=== PATIENT | male | born 1955 ===

== ENCOUNTER 2019-11-26 20:47 | Inpatient (IN) | payer OTHER, MEDICARE, SELFPAY ==
[2019-11-26] VITALS (46 sets, daily range): BP systolic 74–129; BP diastolic 43–102; PULSE 81–159; RESP 9–30; TEMP 36.5–36.7; O2SAT 86–100
[2019-11-26] MEDS: Normal Saline 1,000 ML 1000 ML IV (20:45)
[2019-11-26] MEDS: Lactated Ringers 1,000 ML 1000 ML IV (20:45)
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
--- NOTE | 2019-11-26 21:00 | RT.EKG_ITS ---
APPROVED REPORT Exam: Resting ECG Patient Location: E HR:96 bpm ECG Measurements Heart Rate 96 AXIS MS 152 P 53 QRSd 91 QRS 66 QT 396 T 28 QTc 501 Conclusion Sinus rhythm...normal P axis, V-rate 60- 99 Low voltage, extremity leads...all extremity leads <0.5mV Prolonged QT interval...QTc >500mS I have reviewed and interpreted ECG and agree with software generated interpretation.
[2019-11-26 21:01] LABS: Abs Immature Grans 0.12 10^3/uL (0.0-0.06); Absolute Basophil Count 0.06 10^3/uL (0.0-0.2); Absolute Eosinophil Count 0.09 10^3/uL (0.0-0.7); Absolute Lymphocyte Count 3.12 10^3/uL (1.2-3.4); Absolute Monocyte Count 0.77 10^3/uL (0.1-0.8); Basophils % 0.7; HCT 46.1 % (40.0-50.0); HGB 14.7 g/dL (13.5-17.5); Immature Grans % 1.4; Lymphocytes % 35.6; MCH 33.2 pg (27.0-33.0); MCHC 31.9 % (32.0-36.0); MCV 104.1 fL (80-95); MPV 9.4 fL (8.0-11.0); Monocytes % 8.8; Neutrophils % 52.5; Nucleated RBC 0 %; Platelet Count 281 10^3/uL (130-400); RBC 4.43 10^6/uL (4.36-5.78); RDW 12.8 % (11.8-14.1); RDW-SD 49.6 fL; WBC 8.76 10^3/uL (4.4-10.8)
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
[2019-11-26 21:13] LABS: ALT 181 U/L (16-63); AST 255 U/L (15-37); Alkaline Phosphatase 64 U/L (46-116); Amylase 28 U/L (25-115); Anion Gap 17.4 mmol/L (3-11); BUN 21 mg/dL (7-18); Bilirubin, Total 0.4 mg/dL (0.2-1.0); CO2 18.6 mmol/L (21.0-32.0); CREATININE 2.14 mg/dL (0.70-1.30); Calcium 8.7 mg/dL (8.5-10.1); Chloride 102 mmol/L (98-107); Creatine Kinase 183 U/L (39-308); Estimated GFR 31.07 (mL/min/1.73m2); Glucose 100 mg/dL (74-106); Potassium 4.2 mmol/L (3.5-5.1); Sodium 138 mmol/L (136-145)
[2019-11-26 21:15] LABS: INR 0.9 (0.9-1.1); PTT Activated 20.7 sec (21.0-31.4); Prothrombin Time 9.5 sec (9.3-11.0)
[2019-11-26] MEDS: Lactated Ringers 1,000 ML 2000 ML IV ×2 (21:30→21:48)
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
[2019-11-26] MEDS: Normal Saline Flush 10 ML SYR IVP (21:39)
[2019-11-26] MEDS: Normal Saline - Diluent 50 ML VIAL IV (21:39)
[2019-11-26] MEDS: Omnipaque 350 MG/ML 100 ML BTL IJ (21:40)
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
[2019-11-26 22:00] LABS: BE (Venous) -15 mmol/L (-2-3); HCO3 (Venous) 11 mmol/L (23-28); O2 Sat (Venous) 99 %; TCO2 (Venous) 10 mmol/L (24-29); pCO2 (Venous) 22 mmHg (41-51); pH (Venous) 7.32 (7.31-7.41); pO2 (Venous) 139 mmHg
[2019-11-26 22:01] LABS: HCT 36.1 % (40.0-50.0); HGB 11.4 g/dL (13.5-17.5); MCH 33.3 pg (27.0-33.0); MCHC 31.6 % (32.0-36.0); MCV 105.6 fL (80-95); MPV 9.2 fL (8.0-11.0); Nucleated RBC 0 %; Platelet Count 221 10^3/uL (130-400); RBC 3.42 10^6/uL (4.36-5.78); RDW 12.8 % (11.8-14.1); RDW-SD 49.6 fL; WBC 16.36 10^3/uL (4.4-10.8)
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
[2019-11-26 22:11] LABS: Bilirubin Negative (Negative); Blood Negative (Negative); Clarity Clear (Clear); Glucose Negative (Negative); Ketones Negative (Negative); Leukocyte Esterase Negative (Negative); Nitrite Negative (Negative); Urobilinogen 0.2 EU/dL (Up TO 0.2); pH 5.5 (5-8)
[2019-11-26 22:18] LABS: ALT 122 U/L (16-63); AST 184 U/L (15-37); Albumin 2.5 g/dL (3.4-5.0); Alkaline Phosphatase 44 U/L (46-116); Anion Gap 17.9 mmol/L (3-11); BUN 19 mg/dL (7-18); Bilirubin, Total 0.3 mg/dL (0.2-1.0); CO2 13.1 mmol/L (21.0-32.0); CREATININE 1.55 mg/dL (0.70-1.30); Calcium 6.9 mg/dL (8.5-10.1); Chloride 109 mmol/L (98-107); Estimated GFR 45.08 (mL/min/1.73m2); Glucose 82 mg/dL (74-106); Lipase 95 U/L (73-393); Magnesium 1.2 mg/dL (1.8-2.4); Potassium 3.8 mmol/L (3.5-5.1); Sodium 140 mmol/L (136-145); Total Protein 5.2 g/dL (6.4-8.2)
[2019-11-26 22:24] LABS: ETHANOL BLOOD 299.2 mg/dL (<3); Troponin I < 0.05 ng/mL (<0.06)
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
[2019-11-26 22:26] LABS: Absolute Monocyte Count 0.82 10^3/uL (0.1-0.8); Absolute Neutrophil Count 13.74 10^3/uL (1.2-6.7); Bands % 3; Diff Comment Manual Differential
[2019-11-26 22:27] LABS: Macrocytosis 1+
[2019-11-26 22:33] LABS: *AMPHETAMINES SCREEN URINE Negative (Negative); *BARBITURATES SCREEN URINE Negative (Negative); *BENZODIAZEPINES SCREEN URINE Negative (Negative); Cannabinoids THC Negative (Negative); Cocaine Screen,Urine Negative (Negative); METHADONE URINE SCREEN Negative (Negative); OPIATES URINE SCREEN Negative (Negative)
[2019-11-26 22:35] LABS: Tricyclic Antidepressants Negative (Negative)
--- NOTE | 2019-11-26 23:02 | NUR.NOTE ---
Nursing Note: Request from patient to reach out to son Cale Jainon, voicemail left for cale to call back main number of hospital for update.
[2019-11-26 23:06] LABS: GGT 187 U/L (15-85)
[2019-11-26] MEDS: MAGNESIUM SULFATE 2 GM/50 ML BAG IVPB (23:08)
[2019-11-26] MEDS: FAMOTIDINE 20 MG/50 ML BAG 200 MG IVPB (23:09)
[2019-11-26] MEDS: MAGNESIUM SULFATE 8.12 MEQ, MULTIVITAMIN 10 ML, THIAMINE 100 MG, FOLIC ACID 1 MG in Nor... 168.867 MG IV (23:45)
[2019-11-27] VITALS (55 sets, daily range): BP systolic 86–128; BP diastolic 45–78; PULSE 88–110; RESP 12–35; TEMP 36.6–37.4; O2SAT 89–96
[2019-11-27] MEDS: ACETAMINOPHEN 1,000 MG/100 ML BTL 400 MG IVPB ×3 (00:33→15:43)
[2019-11-27 01:38] LABS: Anion Gap 17.4 mmol/L (3-11); BUN 17 mg/dL (7-18); CO2 13.6 mmol/L (21.0-32.0); CREATININE 1.46 mg/dL (0.70-1.30); Calcium 7.2 mg/dL (8.5-10.1); Chloride 108 mmol/L (98-107); Estimated GFR 48.31 (mL/min/1.73m2); Glucose 96 mg/dL (74-106); Potassium 4.6 mmol/L (3.5-5.1); Sodium 139 mmol/L (136-145)
[2019-11-27 01:48] LABS: Troponin I < 0.05 ng/mL (<0.06)
[2019-11-27] MEDS: Ondansetron 4 MG/2 ML VIAL IVP (05:41)
[2019-11-27] MEDS: POTASSIUM CHLORIDE/D5-0.45NACL 1,000 ML 125 MEQ IV (05:42)
[2019-11-27 06:31] LABS: Abs Immature Grans 0.13 10^3/uL (0.0-0.06); Absolute Basophil Count 0.04 10^3/uL (0.0-0.2); Absolute Lymphocyte Count 0.94 10^3/uL (1.2-3.4); Absolute Monocyte Count 0.92 10^3/uL (0.1-0.8); Absolute Neutrophil Count 8.77 10^3/uL (1.2-6.7); Basophils % 0.4; HCT 37.2 % (40.0-50.0); HGB 11.6 g/dL (13.5-17.5); Immature Grans % 1.2; Lymphocytes % 8.7; MCHC 31.2 % (32.0-36.0); MPV 9.4 fL (8.0-11.0); Monocytes % 8.5; Neutrophils % 81.2; Nucleated RBC 0 %; Platelet Count 245 10^3/uL (130-400); RBC 3.51 10^6/uL (4.36-5.78); RDW-SD 51.2 fL
[2019-11-27 06:32] LABS: Prothrombin Time 9.8 sec (9.3-11.0)
[2019-11-27 07:05] LABS: ALT 127 U/L (16-63); AST 171 U/L (15-37); Albumin 2.8 g/dL (3.4-5.0); Alkaline Phosphatase 47 U/L (46-116); Anion Gap 16.9 mmol/L (3-11); BUN 17 mg/dL (7-18); Bilirubin, Total 0.3 mg/dL (0.2-1.0); CO2 14.1 mmol/L (21.0-32.0); CREATININE 1.29 mg/dL (0.70-1.30); Chloride 108 mmol/L (98-107); Estimated GFR 55.72 (mL/min/1.73m2); Glucose 96 mg/dL (74-106); Potassium 4.7 mmol/L (3.5-5.1); Sodium 139 mmol/L (136-145); Total Protein 5.8 g/dL (6.4-8.2)
[2019-11-27 07:06] LABS: Troponin I < 0.05 ng/mL (<0.06)
[2019-11-27] MEDS: Normal Saline Flush 10 ML SYR IVP ×3 (08:18→15:43)
[2019-11-27 08:53] LABS: Magnesium 2.1 mg/dL (1.8-2.4)
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
[2019-11-27] MEDS: LORazepam 1 MG TAB PO/SL ×3 (09:09→20:09)
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
[2019-11-27] MEDS: Enoxaparin 40 MG/0.4 ML SYR SC (11:00)
[2019-11-27] MEDS: Ketorolac 15 MG/ML VIAL IVP ×3 (11:05→21:52)
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
[2019-11-27] MEDS: HYDROmorphone 2 MG/ML VIAL 1 MG IVP (13:13)
[2019-11-27] MEDS: Bupivacaine 0.5% Pres-Free 30 ML VIAL (14:23)
[2019-11-27 14:51] LABS: COVID-19 RT-PCR UVMMC Result Negative (Negative)
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
[2019-11-27] MEDS: DEXTROSE 5%-0.45% SALINE 1,000 ML 50 ML IV (16:12)
[2019-11-27] MEDS: Bupivacaine LIPOSOME/PF 133 MG/10 ML VIAL IJ (16:41)
[2019-11-27] MEDS: Docusate Sodium 100 MG CAP PO (19:46)
[2019-11-27] MEDS: Gabapentin 100 MG CAP PO (21:52)
[2019-11-27] MEDS: FAMOTIDINE 20 MG/50 ML BAG 200 MG IVPB (21:53)
[2019-11-28] VITALS (42 sets, daily range): BP systolic 102–129; BP diastolic 55–95; PULSE 77–106; RESP 13–22; TEMP 36.6–37.2; O2SAT 3–98
[2019-11-28] MEDS: ACETAMINOPHEN 1,000 MG/100 ML BTL 400 MG IVPB ×4 (00:30→23:34)
[2019-11-28] MEDS: Ketorolac 15 MG/ML VIAL IVP ×4 (05:02→22:21)
[2019-11-28 06:34] LABS: ALT 88 U/L (16-63); AST 57 U/L (15-37); Albumin 2.8 g/dL (3.4-5.0); Alkaline Phosphatase 50 U/L (46-116); Anion Gap 8.1 mmol/L (3-11); BUN 9 mg/dL (7-18); Bilirubin, Total 0.6 mg/dL (0.2-1.0); CO2 22.9 mmol/L (21.0-32.0); CREATININE 1.19 mg/dL (0.70-1.30); Calcium 7.4 mg/dL (8.5-10.1); Chloride 105 mmol/L (98-107); Glucose 109 mg/dL (74-106); Magnesium 1.4 mg/dL (1.8-2.4); Potassium 3.9 mmol/L (3.5-5.1); Sodium 136 mmol/L (136-145); Total Protein 5.9 g/dL (6.4-8.2)
[2019-11-28] MEDS: Docusate Sodium 100 MG CAP PO ×2 (07:39→22:21)
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
[2019-11-28 07:57] LABS: HCT 35.9 % (40.0-50.0); HGB 11.6 g/dL (13.5-17.5); MCH 33.7 pg (27.0-33.0); MCHC 32.3 % (32.0-36.0); MCV 104.4 fL (80-95); MPV 9.5 fL (8.0-11.0); Platelet Count 218 10^3/uL (130-400); RBC 3.44 10^6/uL (4.36-5.78); RDW 13.2 % (11.8-14.1); RDW-SD 50.4 fL; WBC 7.08 10^3/uL (4.4-10.8)
[2019-11-28] MEDS: Normal Saline Flush 10 ML SYR IVP ×2 (10:12→16:48)
[2019-11-28] MEDS: oxyCODONE 5 MG TAB PO ×2 (10:12→17:08)
[2019-11-28] MEDS: Enoxaparin 40 MG/0.4 ML SYR SC (10:12)
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
[2019-11-28] MEDS: DEXTROSE 5%-0.45% SALINE 1,000 ML 50 ML IV (11:58)
[2019-11-28] MEDS: Refresh PLUS Eye Drops 0.4ml 1 EACH OU (12:13)
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
[2019-11-28] MEDS: MAGNESIUM SULFATE 2 GM/50 ML BAG IVPB (14:42)
[2019-11-28] MEDS: Ondansetron 4 MG/2 ML VIAL IVP (16:49)
[2019-11-28] MEDS: FAMOTIDINE 20 MG/50 ML BAG 200 MG IVPB (22:20)
[2019-11-28] MEDS: Gabapentin 100 MG CAP PO (22:20)
[2019-11-29] VITALS (22 sets, daily range): BP systolic 107–152; BP diastolic 71–107; PULSE 68–88; RESP 12–18; TEMP 35.6–37.4; O2SAT 88–99
[2019-11-29] MEDS: Ketorolac 15 MG/ML VIAL IVP ×3 (04:50→20:10)
[2019-11-29] MEDS: DEXTROSE 5%-0.45% SALINE 1,000 ML 50 ML IV (07:26)
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
[2019-11-29] MEDS: Multivitamin TAB 1 TAB PO (08:37)
[2019-11-29] MEDS: Docusate Sodium 100 MG CAP PO ×2 (08:37→20:10)
[2019-11-29] MEDS: Thiamine 100 MG TAB PO (08:37)
[2019-11-29] MEDS: ACETAMINOPHEN 1,000 MG/100 ML BTL 400 MG IVPB (08:37)
[2019-11-29] MEDS: Folic Acid 1 MG TAB PO (08:37)
[2019-11-29] MEDS: oxyCODONE 5 MG TAB PO (09:32)
[2019-11-29] MEDS: Refresh PLUS Eye Drops 0.4ml 1 EACH OU (09:33)
[2019-11-29 10:50] LABS: HCT 40.5 % (40.0-50.0); HGB 12.8 g/dL (13.5-17.5); MCH 33.3 pg (27.0-33.0); MCHC 31.6 % (32.0-36.0); MCV 105.5 fL (80-95); MPV 9.6 fL (8.0-11.0); Platelet Count 234 10^3/uL (130-400); RBC 3.84 10^6/uL (4.36-5.78); RDW 12.6 % (11.8-14.1); RDW-SD 49.2 fL; WBC 7.27 10^3/uL (4.4-10.8)
[2019-11-29 10:52] LABS: Anion Gap 9.8 mmol/L (3-11); BUN 8 mg/dL (7-18); CO2 25.2 mmol/L (21.0-32.0); CREATININE 1.24 mg/dL (0.70-1.30); Calcium 8.4 mg/dL (8.5-10.1); Chloride 102 mmol/L (98-107); Estimated GFR 58.33 (mL/min/1.73m2); Glucose 115 mg/dL (74-106); Magnesium 1.6 mg/dL (1.8-2.4); Potassium 3.5 mmol/L (3.5-5.1); Sodium 137 mmol/L (136-145)
[2019-11-29] MEDS: Enoxaparin 40 MG/0.4 ML SYR SC (11:13)
[2019-11-29] MEDS: Citalopram 20 MG TAB PO (11:13)
[2019-11-29] MEDS: Allopurinol 100 MG TAB PO (11:13)
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
[2019-11-29] MEDS: Loratidine 10 MG TAB PO (11:40)
[2019-11-29] MEDS: Normal Saline Flush 10 ML SYR IVP ×2 (13:57→20:11)
[2019-11-29] MEDS: Normal Saline 500 ML 30 ML IV (15:50)
[2019-11-29] MEDS: MAGNESIUM SULFATE 2 GM/50 ML BAG IVPB (15:50)
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
[2019-11-29] MEDS: Bacitracin 1 PACKET TP (18:12)
[2019-11-29] MEDS: Famotidine 20 MG TAB PO (20:10)
[2019-11-29] MEDS: Gabapentin 100 MG CAP PO (21:39)
[2019-11-30] MEDS: Ketorolac 15 MG/ML VIAL IVP ×4 (01:15→19:33)
[2019-11-30 03:00] VITALS: BP 155/89; PULSE 91; RESP 17; TEMP 36.6; O2SAT 93
[2019-11-30 07:15] VITALS: BP 148/88; PULSE 88; RESP 20; TEMP 37.5; O2SAT 95
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
[2019-11-30 08:09] VITALS: BP 148/88; PULSE 88; RESP 18; TEMP 37.5; O2SAT 96
[2019-11-30] MEDS: amLODIPine 10 MG TAB PO (08:23)
[2019-11-30] MEDS: Famotidine 20 MG TAB PO ×2 (08:23→19:33)
[2019-11-30] MEDS: Lisinopril 20 MG TAB 40 MG PO (08:23)
[2019-11-30] MEDS: Bisacodyl 10 MG SUPP PR (08:23)
[2019-11-30] MEDS: Thiamine 100 MG TAB PO (08:23)
[2019-11-30] MEDS: Docusate Sodium 100 MG CAP PO ×2 (08:23→19:33)
[2019-11-30] MEDS: Loratidine 10 MG TAB PO (08:23)
[2019-11-30] MEDS: Allopurinol 100 MG TAB PO (08:24)
[2019-11-30] MEDS: Folic Acid 1 MG TAB PO (08:24)
[2019-11-30] MEDS: Multivitamin TAB 1 TAB PO (08:24)
[2019-11-30] MEDS: Citalopram 20 MG TAB PO (08:24)
[2019-11-30 08:36] VITALS: O2SAT 96
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
[2019-11-30] MEDS: Enoxaparin 40 MG/0.4 ML SYR SC (09:57)
[2019-11-30 11:05] VITALS: BP 120/77; PULSE 88; RESP 19; TEMP 37.3; O2SAT 97
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
[2019-11-30] MEDS: Acetaminophen 325 MG TAB 650 MG PO ×2 (11:49→18:00)
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
[2019-11-30] MEDS: Normal Saline Flush 10 ML SYR IVP ×2 (13:16→19:36)
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
[2019-11-30 15:42] VITALS: BP 128/82; PULSE 88; RESP 19; TEMP 36.6; O2SAT 95
[2019-11-30] MEDS: Gabapentin 100 MG CAP PO (22:04)
[2019-12-01] MEDS: Ketorolac 15 MG/ML VIAL IVP ×2 (01:10→07:40)
[2019-12-01] MEDS: Normal Saline Flush 10 ML SYR IVP ×2 (01:11→07:40)
[2019-12-01 07:16] VITALS: BP 138/85; PULSE 76; RESP 20; TEMP 36.9; O2SAT 97
[2019-12-01] MEDS: amLODIPine 10 MG TAB PO (07:40)
[2019-12-01] MEDS: Docusate Sodium 100 MG CAP PO (07:40)
[2019-12-01] MEDS: Folic Acid 1 MG TAB PO (07:40)
[2019-12-01] MEDS: Acetaminophen 325 MG TAB 650 MG PO (07:40)
[2019-12-01] MEDS: Thiamine 100 MG TAB PO (07:41)
[2019-12-01] MEDS: Citalopram 20 MG TAB PO (07:41)
[2019-12-01] MEDS: Allopurinol 100 MG TAB PO (07:41)
[2019-12-01] MEDS: Famotidine 20 MG TAB PO (07:41)
[2019-12-01] MEDS: Lisinopril 20 MG TAB 40 MG PO (07:41)
[2019-12-01] MEDS: Loratidine 10 MG TAB PO (07:41)
[2019-12-01] MEDS: Multivitamin TAB 1 TAB PO (07:41)
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
== END 2019-12-01 12:50 | disposition home or self-care (01) | DRG 83 ==
LOC: ER 22:33 → ICU 22:59 → MS 11-29 11:28
PROVIDERS: Physician Assistant; Surgery; Admitting Provider Surgery; Emergency Provider Emergency Medicine; PCP Nurse Practitioner; Visit Provider Surgery
DX: S06.899A Other specified intracranial injury with loss of consciousness of unspecified duration, initial encounter (principal); S22.41XA Multiple fractures of ribs, right side, initial encounter for closed fracture; F10.188 Alcohol abuse with other alcohol-induced disorder; R40.2412 Glasgow coma scale score 13-15, at arrival to emergency department; V89.0XXA Person injured in unspecified motor-vehicle accident, nontraffic, initial encounter; G89.11 Acute pain due to trauma; R07.89 Other chest pain; M1A.9XX0 Chronic gout, unspecified, without tophus (tophi); K57.30 Diverticulosis of large intestine without perforation or abscess without bleeding; I10 Essential (primary) hypertension; E86.0 Dehydration; I95.9 Hypotension, unspecified; G62.1 Alcoholic polyneuropathy; Y90.8 Blood alcohol level of 240 mg/100 ml or more; K76.0 Fatty (change of) liver, not elsewhere classified; G47.30 Sleep apnea, unspecified; F10.129 Alcohol abuse with intoxication, unspecified
CPT/HCPCS: 36415; 51702; 74177; 76942; 80048; 80053; 80307; 82550; 82805; 82947; 83690; 84520; 85027; 86850; 86900; 86901; 93005; 96360; 96361; 97110; 97162; 97530; 99222; 99231; 99232; 99238; 99291; J1650; U0003; 70450; 71045; 71260; 72125; 80320; 81003; 82150; 82247; 82310; 82374; 82435; 82565; 82977; 83735; 84075; 84132; 84295; 84450; 84460; 84484; 85025; 85610; 85730; 93010; 94762; J0131; J1885; J2405; J3490